=== PATIENT | female | born 2000 | race African-American/Black ===

== ENCOUNTER 2022-07-04 15:12 | Emergency (ER) | payer OTHER, SELFPAY ==
[2022-07-04 15:24] VITALS: BP 138/89; PULSE 98; RESP 20; TEMP 35.8; O2SAT 100
--- NOTE | 2022-07-04 16:27 | ED.GENADULT ---
HPI - General Adult General Chief complaint: Upper Respiratory Infection Stated complaint: upper respiratory Source: patient Mode of arrival: ambulatory Limitations: no limitations History of Present Illness HPI narrative: Patient presents for evaluation of sick symptoms for the last 2 to 3 days. Symptoms include sore throat, cough, chills and nausea. She denies any fever, chest pain, shortness of breath, otalgia, vomiting or diarrhea, her sister has similar symptoms. She is not taking any medication to assist with her symptoms. No additional complaints or concerns. Related Data Allergies Allergy/AdvReac Type Severity Reaction Status Date / Time No Known Allergies Allergy Verified 07/04/22 15:37 Review of Systems Review of Systems: CONSTITUTIONAL: Reports chills. Denies fever or sweats. EYES: Denies visual changes, redness, or discharge. ENT: Reports sore throat. Denies rhinorrhea, congestion, or otalgia. CARDIOVASCULAR: Denies chest pain, palpitations, or edema. RESPIRATORY: Reports cough. Denies shortness of breath. GASTROINTESTINAL: Reports nausea. Denies abdominal pain, vomiting, or diarrhea. GENITOURINARY: Denies dysuria or hematuria. SKIN: Denies rash or itching. MUSCULOSKELETAL: Denies back pain, joint pain, or myalgia. NEUROLOGIC: Denies headache, numbness, dizziness, or weakness. PSYCHIATRIC: Denies anxiety or depression. [facility] Past Medical History Medical History No pertinent past medical history Surgical History Surgical History (Updated 07/04/22 @ 16:29 by Kaiden Fu, [employer] MECHANIC, ) No pertinent past surgical history Family History Family History Mother Heart disease Social History Social History Living arrangements: with family Additional occupation/education comments: Works at [employer] Gender identity (if verbalized by the patient): Female Spiritual care concerns: No Exam Narrative: GENERAL: Well-appearing, well-nourished, and in no acute distress. HEAD: Normocephalic, atraumatic. EYES: PERRLA and EOMI. ENT: Nares clear, no rhinorrhea or epistaxis. Mucous membranes moist. Oropharynx without tonsillar hypertrophy exudate or other lesions. Bilateral TMs pearly us nonbulging NECK: Supple. No adenopathy or masses. No carotid bruits or JVD CHEST: Clear to auscultation. No respiratory distress. No wheezes rales or rhonchi HEART: Regular rate and rhythm. No murmur heard. Normal peripheral pulses. ABDOMEN: Soft, nontender, nondistended, normal active bowel sounds. EXTREMITIES: Normal range of motion. No edema. SKIN: Warm, dry, no rash. NEURO: No focal deficits. Alert and oriented x3. PSYCH: Normal mood and affect. Course Course Emergency Course: This is a 21-year-old female who presented for evaluation of sick symptoms. COVID and strep are negative. Influenza a positive. Will discharge with Tamiflu and Zofran. Increase hydration. Seen from work this week. Follow-up outpatient for further evaluation and treatment and go to the ER for worsening symptoms. Patient in agreement with plan of care. Level of Care: Express Care Visit Vital Signs Vital signs: Vital Signs Temperature 35.8 C L 07/04/22 15:24 Pulse Rate 98 07/04/22 15:24 Respiratory Rate 20 07/04/22 15:24 Blood Pressure 138/89 07/04/22 15:24 Pulse Oximetry 100 07/04/22 15:24 Oxygen Delivery Room Air 07/04/22 15:24 Temperature 35.8 C L 07/04/22 15:24 Pulse Rate 98 07/04/22 15:24 Respiratory Rate 20 07/04/22 15:24 Blood Pressure 138/89 07/04/22 15:24 Pulse Oximetry 100 07/04/22 15:24 Oxygen Delivery Room Air 07/04/22 15:24 Medical Decision Making Vital Signs Vital Signs: Vital Signs Temperature 35.8 C L 07/04/22 15:24 Pulse Rate 98 07/04/22 15:24 Respiratory Rate 20
== END 2022-07-04 16:28 | disposition home or self-care (01) ==
PROVIDERS: Emergency Provider Nurse Practitioner
DX: J10.1 Influenza due to other identified influenza virus with other respiratory manifestations (principal); Z20.822 Contact with and (suspected) exposure to COVID-19
CPT/HCPCS: 87081; 87426; 87804; 87880; 99213; C9803; G0463

== ENCOUNTER 2022-12-28 16:55 | Emergency (ER) | payer OTHER, SELFPAY ==
[2022-12-28 17:03] VITALS: BP 156/87; PULSE 118; RESP 16; TEMP 37; O2SAT 100
--- NOTE | 2022-12-28 17:32 | ED.SKABFB ---
HPI - Skin/Abscess/Foreign Bdy General Chief complaint: Skin/Abscess/Foreign Body Stated complaint: Skin Sore Time Seen by Provider: 12/28/22 17:22 Source: patient and RN notes reviewed Mode of arrival: ambulatory Limitations: no limitations History of Present Illness HPI narrative: Patient presents today complaining of drainage, itching, and tenderness to her umbilicus for the last couple of days. States similar symptoms a few weeks ago and states she used some triple antibiotic ointment which did provide some relief. She currently rates her pain 2/10 and reports she has not used any [id number] treatment over the last couple of days. Related Data Allergies Allergy/AdvReac Type Severity Reaction Status Date / Time No Known Allergies Allergy Verified 12/28/22 17:03 Review of Systems Review of Systems: CONSTITUTIONAL: Denies body aches, fever, chills, or sweats. EYES: Denies visual changes, redness, or discharge. ENT: Denies rhinorrhea, congestion, sore throat, or otalgia. CARDIOVASCULAR: Denies chest pain, palpitations, or edema. RESPIRATORY: Denies cough or dyspnea. GASTROINTESTINAL: Denies abdominal pain, nausea, vomiting, or diarrhea. GENITOURINARY: Denies dysuria or hematuria. SKIN: + itching, pain, and drainage to the umbilicus MUSCULOSKELETAL: Denies back pain, joint pain, or myalgia. NEUROLOGIC: Denies headache, numbness, tingling, or weakness. PSYCH: Denies depression or anxiety. [facility] Past Medical History Medical History No pertinent past medical history Surgical History Surgical History No pertinent past surgical history Family History Family History Mother Heart disease Social History Social History Living arrangements: with family Additional occupation/education comments: Works at [employer] Gender identity (if verbalized by the patient): Female Spiritual care concerns: No Comments At time of signature, I have reviewed and agree with nursing past medical, surgical, social and family history unless otherwise noted. Please see nursing chart for further information. There is no relevant family history pertinent to the presenting complaint Exam Narrative: GENERAL: Well-appearing, well-nourished, and in no acute distress. HEAD: Normocephalic, atraumatic. EYES: EOMI. No redness or drainage. Conjunctivae normal. ENT: Mucous membranes pink and moist. NECK: Normal AROM. CHEST: No respiratory distress. EXTREMITIES: Normal range of motion. No edema. SKIN: Warm, dry, no rash. Capillary refill normal. Normal skin turgor. Inside the umbilicus is very moist with moderate amount of thin, yellow drainage. Skin is slightly erythematous. NEURO: No focal deficits. Alert and oriented x3. Gait steady. PSYCH: Normal affect. No signs of depression or anxiety. Course Course Level of Care: Express Care Visit Vital Signs Vital signs: Vital Signs Temperature 98.6 F 12/28/22 17:03 Pulse Rate 118 H 12/28/22 17:03 Respiratory Rate 16 12/28/22 17:03 Blood Pressure 156/87 H 12/28/22 17:03 Pulse Oximetry 100 12/28/22 17:03 Oxygen Delivery Room Air 12/28/22 17:03 Temperature 98.6 F 12/28/22 17:03 Pulse Rate 118 H 12/28/22 17:03 Respiratory Rate 16 12/28/22 17:03 Blood Pressure 156/87 H 12/28/22 17:03 Pulse Oximetry 100 12/28/22 17:03 Oxygen Delivery Room Air 12/28/22 17:03 Reviewed. Pt has been instructed to follow up with her PCP regarding her elevated blood pressure today. MDM - Skin/Abscess/Foreign Bdy MDM Narrative Medical decision making narrative: Symptoms consistent with intertrigo in the umbilicus. Instructed to use clotrimazole. Would like a prescription. Anticipatory guidance given. Differential Diag
== END 2022-12-28 17:41 | disposition home or self-care (01) ==
PROVIDERS: Emergency Provider Nurse Practitioner
DX: L30.4 Erythema intertrigo (principal)
CPT/HCPCS: 99213; G0463

== ENCOUNTER 2025-02-25 10:20 | Emergency (ER) | payer OTHER, SELFPAY ==
[2025-02-25 10:30] VITALS: BP 139/78; PULSE 92; RESP 18; TEMP 36.1; O2SAT 100
[2025-02-25 10:49] LABS: EDCOVIDSCREEN Negative (Negative)
[2025-02-25 11:04] LABS: EDSTREPNEGPOS1 Negative (Negative)
--- NOTE | 2025-02-25 11:06 | ED.URI ---
HPI - URI/Sore Throat General Chief Complaint: Upper Respiratory Infection Stated Complaint: Sore Throat/Congestion/No Taste or Smell Time Seen by Provider: 02/25/25 10:43 Source: patient and RN notes reviewed Mode of arrival: ambulatory Limitations: no limitations History of Present Illness HPI Narrative: Patient presents today complaining of a 4 day history of nasal congestion, rhinorrhea, sore throat, postnasal drip, cough, eye watering. States last night she lost her taste and smell. Denies fever, shortness of breath. States symptoms have improved today. She has tried some Benadryl without relief. No history of asthma. Related Data Allergies Allergy/AdvReac Type Severity Reaction Status Date / Time No Known Allergies Allergy Verified 12/28/22 17:03 Review of Systems Review of Systems: CONSTITUTIONAL: Denies body aches, fever, chills, or sweats. EYES: Denies visual changes, redness. + bilateral eye watering ENT: + rhinorrhea, congestion, sore throat, postnasal drip CARDIOVASCULAR: Denies chest pain, palpitations, or edema. RESPIRATORY: Denies dyspnea.+ cough GASTROINTESTINAL: Denies abdominal pain, nausea, vomiting, or diarrhea. GENITOURINARY: Denies dysuria or hematuria. SKIN: Denies rash, itching, or wounds. MUSCULOSKELETAL: Denies back pain, joint pain, or myalgia. NEUROLOGIC: Denies headache, numbness, tingling, or weakness. PSYCH: Denies depression or anxiety. [facility] Past Medical History Medical History No pertinent past medical history Surgical History Surgical History No pertinent past surgical history Family History Family History Mother Heart disease Social History Social History Living arrangements: with family Additional occupation/education comments: Works at [employer] Gender identity (if verbalized by the patient): Female Spiritual care concerns: No Comments At time of signature, I have reviewed and agree with nursing past medical, surgical, social and family history unless otherwise noted. Please see nursing chart for further information. There is no relevant family history pertinent to the presenting complaint Exam Narrative: GENERAL: Well-appearing, well-nourished, and in no acute distress. HEAD: Normocephalic, atraumatic. EYES: EOMI. No redness or drainage. Conjunctivae normal. ENT: Mucous membranes pink and moist. Nares clear. No rhinorrhea. TMs normal bilaterally. Throat mildly erythematous. Tonsils 2 to 3+ without exudate. Uvula midline. NECK: Normal AROM. Supple. No lymphadenopathy. CHEST: No respiratory distress. Clear to auscultation. HEART: Regular rate and rhythm. No murmur appreciated. EXTREMITIES: Normal range of motion. No edema. SKIN: Warm, dry, no rash. Capillary refill normal. Normal skin turgor. NEURO: No focal deficits. Alert and oriented x3. Gait steady. PSYCH: Normal affect. No signs of depression or anxiety. Course Course Level of Care: Express Care Visit Vital Signs Vital signs: Vital Signs Temperature 97 F L 02/25/25 10:30 Pulse Rate 92 02/25/25 10:30 Respiratory Rate 02/25/25 10:30 Blood Pressure 139/78 02/25/25 10:30 Pulse Oximetry 100 02/25/25 10:30 Oxygen Delivery Room Air 02/25/25 10:30 Temperature 97 F L 02/25/25 10:30 Pulse Rate 92 02/25/25 10:30 Respiratory Rate 02/25/25 10:30 Blood Pressure 139/78 02/25/25 10:30 Pulse Oximetry 100 02/25/25 10:30 Oxygen Delivery Room Air 02/25/25 10:30 Reviewed MDM - URI/Sore Throat MDM Narrative Medical decision making narrative: COVID and rapid strep negative. Strep culture pending. Symptoms likely viral in etiology. Discussed using anti-inflammatories for her sore throat as well as daily antihistamine such as Zyrtec for her postnasal drip, rhinorrhea, and watery eyes. Patient is requesting prescriptions for these. Anticipatory guidance given. Differential Diagnosis Differential diagnosis: Likely upper respiratory infection, viral infection, pharyngitis and other (Strep throat) Lab Data Attestation: I reviewed the patient's lab results. Lab results narrative: Patient requested COVID test Labs: Lab Results 02/25/25 02/25/25 Range/Units 10:47 11:02 POC SARS CoV-2 Ag Negative (Negative) POC Grp A Strep Screen Negative (Negative) Critical Care Time Critical Care Time Critical Care Time: No Discharge Plan Discharge Clinical Impression: Upper respiratory infection Qualifiers: URI type: unspecified URI Qualified Code(s): J06.9 - Acute upper respiratory infection, unspecified Patient Disposition: Home Condition: Stable Instructions: Upper Respiratory Infection (DC) Additional Instructions: Your COVID-19 and rapid strep swab was negative today at [facility]. You will be notified in a few days if the culture comes back positive for strep, and appropriate antibiotics will be called in for you at that time. Your symptoms are likely due to a viral illness, which is not treated with antibiotics. Viral symptoms can be present for up to 7-10 days. Take ibuprofen and Zyrtec for symptoms. Rest and stay hydrated. Follow up with your PCP in 7 days if symptoms are not improving. Go to the ER immediately if you have any difficulty breathing or swallowing. Your blood pressure was elevated above 120/80 today at Urgent Care. This puts you above the threshold for follow up. Please schedule a followup visit with your personal physician as soon as possible, for further evaluation and treatment. Even blood pressure exceeding 120/80 may indicate pre-hypertension. Patient Language: Bengali Prescriptions: New ibuprofen 600 mg tablet 600 mg PO TID PRN (Reason: fever or pain) Qty: 20 0RF cetirizine 10 mg tablet 10 mg PO DAILY Qty: 20 0RF Follow-up/Referrals: UNKNOWN,DOCTOR [Primary Care Provider] - Time of Disposition: 11:13
--- OUTSIDE RECORDS SUMMARY | 2025-02-25 11:47 | XMS_ITS | Referral Summary ---
Author Organization [facility] Address [address] [place] [address] Care Team Providers Care Straightedge Man Name Role Phone No, Physician Primary Care Provider Allergies No known active allergies Medications chlorhexidine (PERIDEX) 0.12 % solutionIndicati ons:Gingivitis Apply 15 mL to the mouth or throat 2 (two) times a day 120 mL 03/04/2023 Active HYDROcodone-acet aminophen (NORCO) 5-325 mg per tabletIndication s:Pain Take 1 tablet by mouth every 6 (six) hours as needed for pain 10 tablet 03/04/2023 Active Social History Tobacco Use Types Packs/Day Years Used Date Smoking Tobacco: Never Assessed Personal Safety Answer Date Recorded Have you ever been in or are you currently in a harmful physical or emotional relationship or is someone making you feel afraid or unsafe? 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 Gender Identity Not on file Sexual Orientation Not on file Last Filed Vital Signs Vital Sign Reading Time Taken Comments Blood Pressure 153/77 03/03/2023 10:38 PM CDT Pulse 66 03/03/2023 10:38 PM CDT Temperature 36.6 C (97.8 F) 03/03/2023 10:38 PM CDT Respiratory Rate 17 03/03/2023 10:38 PM CDT Oxygen Saturation 100% 03/03/2023 10:38 PM CDT Inhaled Oxygen Concentration - - Weight 125.2 kg (276 lb) 03/03/2023 10:38 PM CDT Height 167.6 cm (5' 6) 03/03/2023 10:38 PM CDT Body Mass Index 44.55 03/03/2023 10:38 PM CDT Plan of Treatment Not on file Insurance [facility] Care Teams Straightedge Man Relationship Specialty Start Date End Date No, Physician PCP - General 10/20/22
--- OUTSIDE RECORDS SUMMARY | 2025-02-25 11:47 | XMS_ITS | Clinical Summary ---
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 Gender Identity Not on file Sexual Orientation Not on file Obstetrics History Last Filed Vital Signs Vital Sign Reading [...] 03/03/2023 10:38 PM CDT Plan of Treatment Health Maintenance Due Date Last Done Comments Cervical Cancer Screening 2001 Depression Screening 2001 Hepatitis C Screening 2001 Meningococcal B Vaccine (1 o f 2 - Standard) 2017 Regular Well Visit/Exam 18-64 11/22/2019 DTaP/Tdap/Td Vaccine (6 - Td or Tdap) 06/11/2023 06/11/2013, 08/20/2007, 02/06/2007, Additional history exists Influenza Vaccine (Season Ended) 2025 Pneumococcal vaccine <65 Completed 01/25/2006 Hepatitis B Screening Completed 02/06/2007 , 01/25/2006, 05/04/2004, Additional history exists Varicella Vaccines Completed 02/06/2007, 05/04/2004 HPV Vaccines Completed 06/16/2016, 06/11/2013 Insurance [facility] Care Teams Talent Acquisition Relationship Manager Relationship Specialty Start Date End Date No, Physician PCP - General 10/20/22
--- OUTSIDE RECORDS SUMMARY | 2025-02-25 11:48 | XMS_ITS | Data Portability ---
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 Lab CMP, serum or plasma 2023 024 [facility], [address], [place], [address], 4 06:20:00 HbA1c (hemog lobin A1c), blood 2023 024 ERNESTINA [facility], [address], [place], [address], 4 11:14:56 lipid panel, serum 2023 024 ERNESTINA [facility], [address], [place], [address], 4 06:19:59 vagina l pathog ens panel, ANDREE+pr obe, vagina l fluid 2023 024 ERNESTINA [facility], [address], [place], [address], 4 06:18:10 vitami n D, 25-hyd mariana, total, serum 2023 024 [facility], [address], [place], [address], 4 11:14:57 vagina l pathog ens panel, ANDREE+pr obe, vagina l fluid 2023 024 [facility], [address], [place], [address], 4 07:19:14 cytolo gy report , thin prep, smear or scrapi ng, cervic al or vagina l 2022 023 [facility], [address], [place], [address], 3 16:15:39 HIV 1 + 2, meanin gful use set 2022 023 [facility], [address], [place], [address], 3 11:15:42 RPR (rapid plasma reagin ), serum 2022 023 [facility], [address], [place], [address], 3 11:15:42 Hepati tis C IgG Ab, qual, serum 2022 023 [facility], [address], [place], [address], 3 11:15:38 HBsAg (hepat itis B surfac e Ag), EIA, serum 2022 023 [facility], [address], [place], [address], 3 11:15:41 hsv (1+2) igg, serum 2022 023 [facility], [address], [place], [address], 3 11:15:39 vagina l pathog ens panel, ANDREE+pr obe, vagina l fluid 2022 023 [facility], [address], [place], [address], 3 11:15:40 lipid panel, serum 2017 018 [facility], [address] [place] [address] [address], [place], [address], 8 07:14:11 HbA1c (hemog lobin A1c), blood 2017 018 [facility], [address] [place] [address] [address], [place], [address], 8 07:14:12 TSH + free T4, serum 2017 018 [facility], [address] [place] [address] [address], [place], [address], 8 07:14:10 vitami n D, 25-hyd mariana, total, serum 2017 018 [facility], [address] [place] [address] [address], [place], [address], 8 07:14:12 CBC 2017 018 [facility], [address] [place], [place] [address], [address], [place], [address], 8 07:14:10 CMP, serum or plasma 2017 018 [facility], [address], [address], [place], [address], 8 07:14:11 rapid strep group A, throat 2015 016 In-Office Order, Internal Use Only DO Not Attach Compendium DO Not Attach Compendium, Do Not Delete/merge, [id number] 15:47:15 HbA1c (hemog lobin A1c), blood 2015 016 [facility], [address], [address], [place], [address], 6 11:10:12 lipid panel, serum 2015 016 ERNESTINA [facility], [address], [place], [address], 6 11:10:11 vitami n D, 25-hyd mariana, total, serum 2015 016 [facility], [address], [address], [place], [address], 6 11:10:13 TSH, 2nd Genera tion, QN, serum or plasma 2015 016 [facility], [address], [place], [address], 6 11:10:12 T4, free, serum 2015 016 ER[facility]STINA [facility], [address], [address], [place], [address], 6 11:10:12 HIV 1+2 AB + HIV 1 p24 Ag, qualit ative immuno assay, serum 2015 016 ERNESTINA SALAZARANNABEL[facility], [address] [facility], [address], [place], [address], 6 11:10:13 CBC 2015 016 [facility], [address] [facility], [address], [place], [address], 6 11:10:10 CMP, serum or plasma 2015 016 [facility], [address] [facility] [address], [place], [address], 6 11:10:11 Referral yg lubin referr al 2023 024 [email or web address] Not available 4 19:00:06 breast surger y referr al - Martha barrera has been comple lyndsay at this time. 2023 024 [facility], [address] [facility], [facility], [place], [address], 4 14:14:45 breast surger y referr al 2022 023 [facility] tim [facility], [address] [facility], [address] , [place], [address], 3 10:25:30 nutrit ionist /dieti klarissa referr al 2017 018 [email or web address] [facility], [address] [facility] [place], [address], 9 16:04:57 Procedures None record ed. Surgeries None record ed. Imaging MAMMO, diagno stic, bilate ral - ultras ound if needed 2023 024 [email or web address] [facility] Scheduling, [address] [facility] [place], [address], 4 00:04:33 US, breast , unilat eral 2023 024 [email or web address] Malone [facility] Scheduling, [address] [facility] , [place], [address], 4 14:23:58 Medication Orders nicoti ne 14 mg/24 hr daily transd ermal patch 2023 024 ERNESTINA [id number], [address], [place], [place], [id number], 4 22:58:10 nicoti ne 7 mg/24 hr daily transd ermal patch 2023 024 [email or web address] [facility] #[id number], [address], [place], [place], [id number], 4 10:03:32 Xulane 150 mcg-35 mcg/24 hr transd ermal patch 2022 023 [email or web address] [facility] #[id number], [address], [place], [place], [id number], 4 10:47:55 Patient TargetsNo targets recorded. Patient Instructions Encounter Date Encounter Id Patient Instructions Last Modified By Organization Details Last Modified Time 06/16/2016 [id number] when your child IS overweight: care instructions Not available 06/16/2016 15:47:14 your child WHO IS overweight: care instructions Not available 06/16/2016 15:47:14 diet-exercise, rule 58782 Not available 06/16/2016 15:41:41 11/19/2017 [id number] diet and exercise advice, must have good breakfast and please follow rule 5210 again Not available 11/19/2017 17:37:31 06/04/2023 [id number] learning about mood disorders [email or web address] Not available 06/04/2023 14:48:31 Quitting Tobacco: Care Instructions [email or web address] Not available 06/04/2023 16:00:28 A healthy lifestyle: care instructions [email or web address] Not available 06/04/2023 16:00:28 breast pain: care instructions [email or web address] Not available 06/04/2023 14:48:31 02/13/2024 [id number] A healthy lifestyle: care instructions [email or web address] Not available 02/13/2024 13:21:31 04/29/2024 [id number] Quitting Tobacco: Care Instructions [email or web address] Not available 04/29/2024 16:14:13 A healthy lifestyle: care instructions [email or web address] Not available 04/29/2024 16:14:13 I saw the patient with the resident. I agree with the resident's assessment and plan as documented with the following additions: S: Concerned about right breast pain - stabbing and pulling pain. Had increased swelling in January, improved in February. Did not have breast imaging done yet. No nipple discharge, skin changes. Also has low abdominal pain, L>R, x4 months. Feels stabbing or pulling; worse with movement. No n/v, constipation, diarrhea. Has vaginal odor. No period problems. Has tension headaches. Also concern for anxiety. No SI/HI but did not want to discuss further. Vapes and wants to quit. Smokes MJ daily. O: Normal abdominal exam. Right breast larger than the left with area A/P: Diagnostic Mammo ordered and imaging referral provided to patient Nolberto Vizcarra MD [email or web address] Not available 05/13/2024 11:12:20 Reason for Referral Inclinometer Tester/dietitian Refer ral for Morbid obesity Referring Physician: Harpreet Mortensen, Pediatric Medicine, Encounter Date: 11/19/2017 Breast Surgery Referral for Pain of breast Referring Physician: Rose Arriaga, Supervisor Pleating, Encounter Date: 06/04/2023 Breast Surgery Referral for Mass of right breast newer onset right breast siginifcantly larger than left breast and pos mass in right breast and pain No imaging has been completed at this time. Referring Physician: Emilie See, MANAGER UTILIZATION MANAGEMENT, Encounter Date: 02/13/2024 Counseling Referral for Posi tive screening for depression on PHQ-9 (Patient Health Questionnaire 9) Referring Physician: Emilie See, MANAGER UTILIZATION MANAGEMENT, Encounter Date: 02/13/2024 Results Created Date Observation Date Name Description Value Unit Range Abnormal Flag Note LastModifiedBy Organization Detail LastModifiedTime 06/16/20 16 06/16/2016 rapid strep group A, throa t Strep negati ve Not Available In-Office Order Internal Use Only DO Not Attach Compendium DO Not Attach Compendium, Do Not Delete/merge, [id number] 06/16/2016 15:46:45 06/16/20 16 06/17/2016 CBC WBC 8.3 x10e3 /uL 3.4-10 .8 Not Available [facility] ([facility]) [address] [place], [address], 06/17/2016 11:10:10 06/16/20 16 06/17/2016 CBC RBC 5.85 x10e6 /uL 3.77-5 .28 above high normal Not Available [facility] ([facility]) [address] [place], [address], 06/17/2016 11:10:10 06/16/20 16 06/17/2016 CBC hemoglobin 13.4 g/dL 11.1-1 5.9 Not Available [facility] ([facility]) [address] [place], [address], 06/17/2016 11:10:10 06/16/20 16 06/17/2016 CBC hematocrit 39.5 % 34.0-4 6.6 Not Available [facility] ([facility]) [address] [place], [address], 06/17/2016 11:10:10 06/16/20 16 06/17/2016 CBC MCV 68 fL 79-97 below low normal Not Available [facility] ([facility]) [address] [place], [address], 06/17/2016 11:10:10 06/16/20 16 06/17/2016 CBC MCH 22.9 pg 26.6-3 3.0 below low normal Not Available [facility] ([facility]) [address] [facility] [place], [address], 06/17/2016 11:10:10 06/16/20 16 06/17/2016 CBC MCHC 33.9 g/dL 31.5-3 5.7 Not Available [facility] ([facility]) [address] [facility] [place], [address], 06/17/2016 11:10:10 06/16/20 16 06/17/2016 CBC RDW 16.4 % 12.3-1 5.4 above high normal Not Available [facility] ([facility]) [address] [facility] [place], [address], 06/17/2016 11:10:10 06/16/20 16 06/17/2016 CBC platelets 361 x10e3 /uL 150-37 9 Not Available [facility] ([facility]) [address] [place], [address], 06/17/2016 11:10:10 06/16/20 16 06/17/2016 CBC neutrophils 45 % Not Avai lable [facility] ([facility]) [address] [place], [address], 06/17/2016 11:10:10 06/16/20 16 06/17/2016 CBC lymphs 46 % Not Available [facility] ([facility]) [address] [place], [address], 06/17/2016 11:10:10 06/16/20 16 06/17/2016 CBC monocytes 8 % Not Availa ble [facility] ([facility]) [address] [place], [address], 06/17/2016 11:10:10 06/16/20 16 06/17/2016 CBC eos 1 % Not Available [facility] ([facility]) [address] [place], [address], 06/17/2016 11:10:10 06/16/20 16 06/17/2016 CBC basos 0 % Not Available [facility] ([facility]) [address] [place], [address], 06/17/2016 11:10:10 06/16/20 16 06/17/2016 CBC immature cells PUBLIC HEALTH REPRESENTATIVE Not Available [facility] ([facility]) [address] [place], [address], 06/17/2016 11:10:10 06/16/20 16 06/17/2016 CBC neutrophils (absolute) 3.7 x10e3 /uL 1.4-7. 0 Not Available [facility] ([facility]) [address] [place], [address], 06/17/2016 11:10:10 06/16/20 16 06/17/2016 CBC lymphs (absolute) 3.8 x10e3 /uL 0.7-3. 1 above high normal Not Available [facility] ([facility]) [address] [facility], [place], [address], 06/17/2016 11:10:10 06/16/20 16 06/17/2016 CBC monocytes(ab solute) 0.7 x10e3 /uL 0.1-0. 9 Not Available [facility] ([facility]) [address] [place], [address], 06/17/2016 11:10:10 06/16/20 16 06/17/2016 CBC eos (absolute) 0.0 x10e3 /uL 0.0-0. 4 Not Available [facility] ([facility]) [address] [place], [address], 06/17/2016 11:10:10 06/16/20 16 06/17/2016 CBC baso (absolute) 0.0 x10e3 /uL 0.0-0. 3 Not Available [facility] ([facility]) [address] [place], [address], 06/17/2016 11:10:10 06/16/20 16 06/17/2016 CBC immature granulocytes 0 % Not Available [facility] ([facility]) [address] [place], [address], 06/17/2016 11:10:10 06/16/20 16 06/17/2016 CBC immature grans (abs) 0.0 x10e3 /uL 0.0-0. 1 Not Available [facility] ([facility]) [address] [place], [address], 06/17/2016 11:10:10 06/16/20 16 06/17/2016 CBC NRBC PUBLIC HEALTH REPRESENTATIVE Not Available [facility] ([facility]) [address] [place], [address], 06/17/2016 11:10:10 06/16/20 16 06/17/2016 CBC hematology comments: PUBLIC HEALTH REPRESENTATIVE Not Available [facility] ([facility]) [address] [facility], [place], [address], 06/17/2016 11:10:10 06/16/20 16 06/17/2016 CMP, serum or plasm a glucose, serum 84 mg/dL 65-99 Not Available [facility] ([facility]) [address] [place], [address], 06/17/2016 11:10:11 06/16/20 16 06/17/2016 CMP, serum or plasm a BUN 10 mg/dL 5-18 Not Available [facility] ([facility]) [address] [place], [address], 06/17/2016 11:10:11 06/16/20 16 06/17/2016 CMP, serum or plasm a creatinine, serum 0.70 mg/dL 0.49-0 .90 Not Available [facility] ([facility]) [address] [place], [address], 06/17/2016 11:10:11 06/16/20 16 06/17/2016 CMP, serum or plasm a BUN/creatini ne ratio 14 9-25 Not Available [facility] ([facility]) [address] [place], [address], 06/17/2016 11:10:11 06/16/20 16 06/17/2016 CMP, serum or plasm a sodium, serum 143 mmol/ L 134-14 4 EFF ECTIV E OCTOB ER 2015 THE REFER ENCE INTER SAVANA FOR SODIU M, SERUM WILL BE BURNETT ING TO: 136 - 144 Not Available [facility] ([facility]) [address] [place], [address], 06/17/2016 11:10:11 06/16/20 16 06/17/2016 CMP, serum or plasm a potassium, serum 4.7 mmol/ L 3.5-5. 2 EFF ECTIV E OCTOB ER 2015 THE REFER ENCE INTER SAVANA FOR POTAS SIUM, SERUM WILL BE BURNETT ING TO: 0 - 7 DAYS 3.7 - 5.2 8 - 30 DAYS 3.7 - 6.4 1 - 6 MONTH S 3.8 - 6.0 7 MONTH S - 1 YEAR 3.8 - 5.3 >1 YEAR 3.5 - 5.2 Not Available [facility] ([facility]) [address] [place], [address], 06/17/2016 11:10:11 06/16/20 16 06/17/2016 CMP, serum or plasm a chloride, serum 101 mmol/ L 97-108 EFF ECTIV E OCTOB ER 2015 THE REFER ENCE INTER SAVANA FOR CHLOR AYANNA, SERUM WILL BE BURNETT ING TO: 97 - 106 Not Available [facility] ([facility]) [address] [place], [address], 06/17/2016 11:10:11 06/16/20 16 06/17/2016 CMP, serum or plasm a calcium, serum 9.7 mg/dL 8.9-10 .4 Not Available [facility] ([facility]) [address] [facility], [place], [address], 06/17/2016 11:10:11 06/16/20 16 06/17/2016 CMP, serum or plasm a protein, total, serum 7.5 g/dL 6.0-8. 5 Not Available [facility] ([facility]) [address] [facility], [place], [address], 06/17/2016 11:10:11 06/16/20 16 06/17/2016 CMP, serum or plasm a albumin, serum 4.3 g/dL 3.5-5. 5 Not Available [facility] ([facility]) [address] [facility], [place], [address], 06/17/2016 11:10:11 06/16/20 16 06/17/2016 CMP, serum or plasm a globulin, total 3.2 g/dL 1.5-4. 5 Not Available [facility] ([facility]) [address] [facility], [place], [address], 06/17/2016 11:10:11 06/16/20 16 06/17/2016 CMP, serum or plasm a A/G ratio 1.3 1.1-2. 5 Not Available [facility] ([facility]) [address] [facility], [place], [address], 06/17/2016 11:10:11 06/16/20 16 06/17/2016 CMP, serum or plasm a bilirubin, total 0.4 mg/dL 0.0-1. 2 Not Available [facility] ([facility]) [address] [facility], [place], [address], 06/17/2016 11:10:11 06/16/20 16 06/17/2016 CMP, serum or plasm a alkaline phosphatase, S 133 IU/L 62-149 Not Available [facility] ([facility]) [address] [facility], [place], [address], 06/17/2016 11:10:11 06/16/20 16 06/17/2016 CMP, serum or plasm a AST (SGOT) 14 IU/L 0-40 Not Available [facility] ([facility]) [address] [place], [address], 06/17/2016 11:10:11 06/16/20 16 06/17/2016 lipid panel , serum cholesterol, total 187 mg/dL 100-16 9 above high normal Not Available [facility] ([facility]) [address] [place], [address], 06/17/2016 11:10:11 06/16/20 16 06/17/2016 lipid panel , serum triglyceride s 79 mg/dL 0-89 Not Available [facility] ([facility]) [address] [place], [address], 06/17/2016 11:10:11 06/16/20 16 06/17/2016 lipid panel , serum HDL cholesterol 39 mg/dL >39 below low normal ACCOR DING TO ATP-I II GUIDE LINES , HDL-C >59 MG/DL IS CONSI DERED A NEGAT BRANDY RISK FACTO R FOR CHD. Not Available [facility] ([facility]) [address] [place], [address], 06/17/2016 11:10:11 06/16/20 16 06/17/2016 lipid panel , serum VLDL cholesterol ulices 16 mg/dL 5-40 Not Available [facility] ([facility]) [address] [place], [address], 06/17/2016 11:10:11 06/16/20 16 06/17/2016 lipid panel , serum LDL cholesterol calc 132 mg/dL 0-109 above high normal Not Available [facility] ([facility]) [address] [place], [address], 06/17/2016 11:10:11 06/16/20 16 06/17/2016 lipid panel , serum comment: PUBLIC HEALTH REPRESENTATIVE Not Available [facility] ([facility]) [address] [facility], [place], [address], 06/17/2016 11:10:11 06/16/20 16 06/17/2016 HbA1c (hemo globi n A1c), blood hemoglobin A1C 5.4 % 4.8-5. 6 PRE-D IABET ES: 5.7 - 6.4 DIABE ABEL: >6.4 GLYCE AZAM CONTR OL FOR ADULT S WITH DIABE ABEL: <7.0 Not Available [facility] ([facility]) [address] [place], [address], 06/17/2016 11:10:11 06/16/20 16 06/17/2016 T4, free, serum T4,free(dire ct) 1.28 NG/dL 0.93-1 .60 Not Available [facility] ([facility]) [address] [place], [address], 06/17/2016 11:10:12 06/16/20 16 06/17/2016 TSH, 2nd Gener ation , QN, serum or plasm a TSH 2.110 uIU/m L 0.450- 4.500 Not Available [facility] ([facility]) [address] [place], [address], 06/17/2016 11:10:12 06/16/20 16 06/17/2016 vitam in D, 25-hy droxy , total , serum vitamin D, 25-hydroxy 12.0 NG/mL 30.0-1 00.0 below low normal VITAM IN D DEFIC IENCY HAS BEEN DEFIN ED BY THE INSTI TUTE OF MEDIC INE AND AN ENDOC RINE SOCIE TY PRACT ICE GUIDE LINE A LEVEL OF SERUM 25-OH VITAM IN D LESS THAN 20 NG/ML (1,2) . THE ENDOC RINE SOCIE TY WENT ON TO FURTH ER DEFIN E VITAM IN D INSUF FICIE NCY A LEVEL BETWE EN 21 AND 29 NG/ML (2). 1. IOM (INST ITUTE OF MEDIC INE). 2010. DIETA RY REFER ENCE INTAK ES FOR CALCI UM AND D. MEGAN SONG DC: THE [facility] PRESS . 2. ANASTASIA Cm MF, BINKL EY NC, BISCH OFF-F ERRAR I SEALS, ET AL. EVALU ATION , TREAT MENT, AND PREVE NTION OF VITAM IN D DEFIC IENCY : AN ENDOC RINE SOCIE TY CLINI ULICES PRACT ICE GUIDE LINE. JCEM. 2010; 96(7) :1911 -30. Not Available [facility] ([facility]) [address] [place], [address], 06/17/2016 11:10:13 06/16/20 16 06/17/2016 HIV 1+2 AB + HIV 1 p24 Ag, quali tativ e immun oassa y, serum HIV screen 4TH generation wrfx NON REACTI VE non reacti ve Not Available [facility] ([facility]) [address] [place], [address], 06/17/2016 11:10:13 11/20/19 18 11/20/2017 TSH + free T4, serum TSH 2.230 uIU/m L 0.450- 4.500 Not Available [facility] ([facility]) [address] [place], [address], 11/20/2017 07:14:09 11/20/19 18 11/20/2017 TSH + free T4, serum T4,free(dire ct) 1.18 NG/dL 0.93-1 .60 Not Available [facility] ([facility]) [address] [place], [address], 11/20/2017 07:14:09 11/20/19 18 11/20/2017 CBC WBC 8.6 x10e3 /uL 3.4-10 .8 Not Available [facility] ([facility]) [address] [place], [address], 11/20/2017 07:14:10 11/20/19 18 11/20/2017 CBC RBC 5.81 x10e6 /uL 3.77-5 .28 above high normal Not Available [facility] ([facility]) [address] [place], [address], 11/20/2017 07:14:10 11/20/19 18 11/20/2017 CBC hemoglobin 13.3 g/dL 11.1-1 5.9 Not Available [facility] ([facility]) [address] [place], [address], 11/20/2017 07:14:10 11/20/19 18 11/20/2017 CBC hematocrit 38.8 % 34.0-4 6.6 Not Available [facility] ([facility]) [address] [place], [address], 11/20/2017 07:14:10 11/20/19 18 11/20/2017 CBC MCV 67 fL 79-97 below low normal Not Available [facility] ([facility]) [address] [place], [address], 11/20/2017 07:14:10 11/20/19 18 11/20/2017 CBC MCH 22.9 pg 26.6-3 3.0 below low normal Not Available [facility] ([facility]) [address] [place], [address], 11/20/2017 07:14:10 11/20/19 18 11/20/2017 CBC MCHC 34.3 g/dL 31.5-3 5.7 Not Available [facility] ([facility]) [address] [place], [address], 11/20/2017 07:14:10 11/20/19 18 11/20/2017 CBC RDW 17.7 % 12.3-1 5.4 above high normal Not Available [facility] ([facility]) [address] [place], [address], 11/20/2017 07:14:10 11/20/19 18 11/20/2017 CBC platelets 373 x10e3 /uL 150-37 9 Not Available [facility] ([facility]) [address] [facility], [place], [address], 11/20/2017 07:14:10 11/20/19 18 11/20/2017 CBC neutrophils 45 % not estab. Not Available [facility] ([facility]) [address] [facility], [place], [address], 11/20/2017 07:14:10 11/20/19 18 11/20/2017 CBC lymphs 49 % not estab. Not Available [facility] ([facility]) [address] [facility], [place], [address], 11/20/2017 07:14:10 11/20/19 18 11/20/2017 CBC monocytes 5 % not estab. Not Available [facility] ([facility]) [address] [facility], [place], [address], 11/20/2017 07:14:10 11/20/19 18 11/20/2017 CBC eos 1 % not estab. Not Available [facility] ([facility]) [address] [facility], [place], [address], 11/20/2017 07:14:10 11/20/19 18 11/20/2017 CBC basos 0 % not estab. Not Available [facility] ([facility]) [address] [facility], [place], [address], 11/20/2017 07:14:10 11/20/19 18 11/20/2017 CBC immature cells PUBLIC HEALTH REPRESENTATIVE Not Available [facility] ([facility]) [address] [facility], [place], [address], 11/20/2017 07:14:10 11/20/19 18 11/20/2017 CBC neutrophils (absolute) 3.9 x10e3 /uL 1.4-7. 0 Not Available [facility] ([facility]) [address] [facility], [place], [address], 11/20/2017 07:14:10 11/20/19 18 11/20/2017 CBC lymphs (absolute) 4.3 x10e3 /uL 0.7-3. 1 above high normal Not Available [facility] ([facility]) [address] [place], [address], 11/20/2017 07:14:10 11/20/19 18 11/20/2017 CBC monocytes(ab solute) 0.4 x10e3 /uL 0.1-0. 9 Not Available [facility] ([facility]) [address] [place], [address], 11/20/2017 07:14:10 11/20/19 18 11/20/2017 CBC eos (absolute) 0.1 x10e3 /uL 0.0-0. 4 Not Available [facility] ([facility]) [address], [place], [address], 11/20/2017 07:14:10 11/20/19 18 11/20/2017 CBC baso (absolute) 0.0 x10e3 /uL 0.0-0. 3 Not Available [facility] ([facility]) [address] [place], [address], 11/20/2017 07:14:10 11/20/19 18 11/20/2017 CBC immature granulocytes 0 % not estab. Not Available [facility] ([facility]) [address] [place], [address], 11/20/2017 07:14:10 11/20/1911/20/2017 CBC immature grans (abs) 0.0 x10e3 /uL 0.0-0. 1 Not Available [facility] ([facility]) [address] [place], [address], 11/20/2017 07:14:10 11/20/19 18 11/20/2017 CBC NRBC PUBLIC HEALTH REPRESENTATIVE Not Available [facility] ([facility]) [address] [place], [address], 11/20/2017 07:14:10 11/20/19 18 11/20/2017 CBC hematology comments: PUBLIC HEALTH REPRESENTATIVE Not Available [facility] ([facility]) [address] [place], [address], 11/20/2017 07:14:10 11/20/19 18 11/20/2017 CMP, serum or plasm a glucose, serum 103 mg/dL 65-99 above high normal Not Available [facility] ([facility]) [address] [place], [address], 11/20/2017 07:14:11 11/20/19 18 11/20/2017 CMP, serum or plasm a BUN 9 mg/dL 5-18 Not Available [facility] ([facility]) [address] [place], [address], 11/20/2017 07:14:11 11/20/19 18 11/20/2017 CMP, serum or plasm a creatinine, serum 0.71 mg/dL 0.57-1 .00 Not Available [facility] ([facility]) [address] [place], [address], 11/20/2017 07:14:11 11/20/19 18 11/20/2017 CMP, serum or plasm a BUN/creatini ne ratio 13 10-22 Not Available [facility] ([facility]) [address] [place], [address], 11/20/2017 07:14:11 11/20/19 18 11/20/2017 CMP, serum or plasm a sodium, serum 140 mmol/ L 134-14 4 Not Available [facility] ([facility]) [address] [place], [address], 11/20/2017 07:14:11 11/20/19 18 11/20/2017 CMP, serum or plasm a potassium, serum 4.9 mmol/ L 3.5-5. 2 Not Available [facility] ([facility]) [address] [facility] [place], [address], 11/20/2017 07:14:11 11/20/19 18 11/20/2017 CMP, serum or plasm a chloride, serum 102 mmol/ L 96-106 Not Available [facility] ([facility]) [address] [facility] [place], [address], 11/20/2017 07:14:11 11/20/19 18 11/20/2017 CMP, serum or plasm a calcium, serum 9.5 mg/dL 8.9-10 .4 Not Available [facility] ([facility]) [address] [facility] [place], [address], 11/20/2017 07:14:11 11/20/19 18 11/20/2017 CMP, serum or plasm a protein, total, serum 7.3 g/dL 6.0-8. 5 Not Available [facility] ([facility]) [address] [facility] [place], [address], 11/20/2017 07:14:11 11/20/19 18 11/20/2017 CMP, serum or plasm a albumin, serum 3.9 g/dL 3.5-5. 5 Not Available [facility] ([facility]) [address] [facility] [place], [address], 11/20/2017 07:14:11 11/20/19 18 11/20/2017 CMP, serum or plasm a globulin, total 3.4 g/dL 1.5-4. 5 Not Available [facility] ([facility]) [address] [place], [address], 11/20/2017 07:14:11 11/20/19 18 11/20/2017 CMP, serum or plasm a A/G ratio 1.1 1.2-2. 2 below low normal Not Available [facility] ([facility]) [address] [facility] [place], [address], 11/20/2017 07:14:11 11/20/19 18 11/20/2017 CMP, serum or plasm a bilirubin, total 0.3 mg/dL 0.0-1. 2 Not Available [facility] ([facility]) [address] [place], [address], 11/20/2017 07:14:11 11/20/19 18 11/20/2017 CMP, serum or plasm a alkaline phosphatase, S 110 IU/L 54-121 Not Available [facility] ([facility]) [address] [place], [address], 11/20/2017 07:14:11 11/20/19 18 11/20/2017 CMP, serum or plasm a AST (SGOT) 16 IU/L 0-40 Not Available [facility] ([facility]) [address] [place], [address], 11/20/2017 07:14:11 11/20/19 18 11/20/2017 lipid panel , serum cholesterol, total 191 mg/dL 100-16 9 above high normal Not Available [facility] ([facility]) [address] [facility] [place], [address], 11/20/2017 07:14:11 11/20/19 18 11/20/2017 lipid panel , serum triglyceride s 110 mg/dL 0-89 above high normal Not Available [facility] ([facility]) [address] [facility] [place], [address], 11/20/2017 07:14:11 11/20/19 18 11/20/2017 lipid panel , serum HDL cholesterol 42 mg/dL >39 Not Available [facility] ([facility]) [address] [facility] [place], [address], 11/20/2017 07:14:11 11/20/19 18 11/20/2017 lipid panel , serum VLDL cholesterol ulices 22 mg/dL 5-40 Not Available [facility] ([facility]) [address] [facility] [place], [address], 11/20/2017 07:14:11 11/20/19 18 11/20/2017 lipid panel , serum LDL cholesterol calc 127 mg/dL 0-109 above high normal Not Available [facility] ([facility]) [address] [facility], [place], [address], 11/20/2017 07:14:11 11/20/19 18 11/20/2017 lipid panel , serum comment: PUBLIC HEALTH REPRESENTATIVE Not Available [facility] ([facility]) [address] [facility], [place], [address], 11/20/2017 07:14:11 11/20/19 18 11/20/2017 HbA1c (hemo globi n A1c), blood hemoglobin A1C 5.3 % 4.8-5. 6 Pre-d iabet es: 5.7 - 6.4 Diabe abel: >6.4 Glyce azam contr ol for adult s with diabe abel: <7.0 Not Available [facility] ([facility]) [address] [facility], [place], [address], 11/20/2017 07:14:12 11/20/19 18 11/20/2017 vitam in D, 25-hy droxy , total , serum vitamin D, 25-hydroxy 10.9 NG/mL 30.0-1 00.0 below low normal Vitam in D defic iency has been defin ed by the Insti tute of Medic ine and an Endoc rine Socie ty pract ice guide line as a level of serum 25-OH vitam in D less than 20 ng/mL (1,2) . The Endoc rine Socie ty went on to furth er defin e vitam in D insuf ficie ncy as a level betwe en 21 and 29 ng/mL (2). 1. IOM (Inst itute of Medic ine). 2010. Dieta ry refer ence intak es for calci um and D. Megan song [place]: The [facility] Press . 2. Anastasia cm MF, Harsha ey [place], Yaneth off-F errar i SEALS, et al. Evalu ation , treat ment, and preve ntion of vitam in D defic iency : an Endoc rine Socie ty clini ulices pract ice guide line. JCEM. 2010; 96(7) :1911 -30. Not Available [facility] ([facility]) [address] [facility], [place], [address], 11/20/2017 07:14:12 06/04/20 23 06/05/2023 HCV ANTIB JOSE hep C virus Ab Non Reacti ve nonrea ctive HCV antib jose alone does not diffe renti ate betwe en previ ously resol caro infec tion and activ e infec tion. Equiv ocal and React brandy HCV antib jose resul ts shoul d be follo wed up with an HCV RNA test to suppo rt the diagn osis of activ e HCV infec tion. Not Available [facility] ([facility]) [address] [facility], [place], [address], 06/06/2023 11:15:38 06/04/20 23 06/05/2023 HSV 1 AND 2 AB, IGG hsv 1 IgG, type spec <0.91 index 0.00-0 .90 Negat brandy <0.91 Equiv ocal 0.91 - 1.09 Posit brandy >1.09 Note: Negat brandy indic ates no antib odies detec lyndsay to HSV-1 . Equiv ocal may sugge st early infec tion. If clini afshan appro priat e, retes t at later date. Posit brandy indic ates antib odies detec lyndsay to HSV-1 . Not Available [facility] ([facility]) [address] [facility], [place], [address], 06/06/2023 11:15:39 06/04/20 23 06/05/2023 HSV 1 AND 2 AB, IGG hsv 2 IgG, type spec <0.91 Negat brandy <0.91 Equiv ocal 0.91 - 1.09 Posit brandy >1.09 HSV-2 Antib jose Inter preta tion: Negat brandy indic ates no detec table antib odies to HSV-2 were found . If recen t expos ure is suspe cted, retes t in 4-6 weeks . Equiv ocal sampl es shoul d be retes lyndsay in 4-6 weeks . Posit brandy indic ates the prese nce of detec table IgG antib jose to HSV-2 . False posit brandy resul ts may occur . Repea t testi ng, or testi ng by a diffe rent smiley traore, may be indic ated in some setti ngs (e.g. patie nts with low likel ihood of HSV infec tion) . If clini afshan appro priat e, retes t 4-6 weeks later . Not Available [facility] ([facility]) [address] [facility], [place], [address], 06/06/2023 11:15:39 06/04/20 23 06/05/2023 NUSWA B VAGIN ITIS PLUS (VG+) atopobium vaginae Low - 0 score Not Available [facility] ([facility]) [address] [facility], [place], [address], 06/06/2023 11:15:40 06/04/20 23 06/05/2023 NUSWA B VAGIN ITIS PLUS (VG+) bvab 2 Low - 0 score Not Available [facility] ([facility]) [address] [facility], [place], [address], 06/06/2023 11:15:40 06/04/20 23 06/05/2023 NUSWA B VAGIN ITIS PLUS (VG+) megasphaera 1 Low - 0 score Calcu late total score by davion g the 3 indiv idual bacte rial vagin osis (BV) marke r score s toget her. Total score is inter prete d as follo ws: Total score 0-1: Indic ates the absen ce of BV. Total score 2: Indet ermin ate for BV. Addit ional clini ulices data shoul d be evalu ated to estab kavita a diagn osis. Total score 3-6: Indic ates the prese nce of BV. This test was devel oped and its perfo rmanc e vince cteri stics deter mined by [facility]. It has not been clear ed or appro caro by the Food and Drug Admin istra tion. Not Available [facility] ([facility]) [address] [facility], [place], [address], 06/06/2023 11:15:40 06/04/20 23 06/05/2023 NUSWA B VAGIN ITIS PLUS (VG+) sonal albicans, ANDREE Negati ve negati ve Not Available [facility] ([facility]) [address] [place], [address], 06/06/2023 11:15:40 06/04/20 23 06/05/2023 NUA B VAGIN ITIS PLUS (VG+) sonal glabrata, ANDREE Negati ve negati ve Not Available [facility] ([facility]) [address] [place], [address], 06/06/2023 11:15:40 06/04/20 23 06/06/2023 NUSWA B VAGIN ITIS PLUS (VG+) trich vag by ANDREE Negati ve negati ve Not Available [facility] ([facility]) [address] [place], [address], 06/06/2023 11:15:40 06/04/20 23 06/06/2023 NUSWA B VAGIN ITIS PLUS (VG+) chlamydia trachomatis, ANDREE Negati ve negati ve Not Available [facility] ([facility]) [address] [place], [address], 06/06/2023 11:15:40 06/04/20 23 06/06/2023 NUSWA B VAGIN ITIS PLUS (VG+) neisseria gonorrhoeae, ANDREE Negati ve negati ve Not Available [facility] ([facility]) [address] [place], [address], 06/06/2023 11:15:40 06/04/20 23 06/05/2023 HBSAG SCREE N HBsAg screen Negati ve negati ve Not Available [facility] ([facility]) [address] [facility], [place], [address], 06/06/2023 11:15:41 06/04/2006/05/2023 RPR, RFX QN RPR/C ONFIR M TP RPR Non Reacti ve nonrea ctive Not Available [facility] ([facility]) [address] [facility], [place], [address], 06/06/2023 11:15:42 06/04/2006/05/2023 HIV AB/P2 4 AG WITH REFLE X HIV Ab/P24 Ag screen Non Reacti ve nonrea ctive HIV Negat brandy HIV-1 /HIV- 2 antib odies and HIV-1 p24 antig en were NOT detec lyndsay. There is no labor atory evide nce of HIV infec tion. Not Available [facility] ([facility]) [address] [facility], [place], [address], 06/06/2023 11:15:42 06/04/20 23 06/06/2023 IGP,C TNGTV ,RFX APTIM A HPV ASCU diagnosis: Commen t NEGAT BRANDY FOR INTRA EPITH ELIAL LESIO N OR STANISLAV VASQUEZ . Not Available [facility] ([facility]) [address] [facility], [place], [address], 06/06/2023 16:15:38 06/04/2006/06/2023 IGP,C TNGTV ,RFX APTIM A HPV ASCU specimen adequacy: Commen t Satis facto ry for evalu ation . Endoc ervic al and/o r squam ous metap lasti c cells (endo cervi ulices compo nent) are prese nt. Not Available [facility] ([facility]) [address] [facility], [place], [address], 06/06/2023 16:15:38 06/04/20 23 06/06/2023 IGP,C TNGTV ,RFX APTIM A HPV ASCU clinician provided ICD10: Nora zuleta Z72.5 1 N89.8 Z01.4 19 Not Available [facility] ([facility]) [address] [place], [address], 06/06/2023 16:15:38 06/04/20 23 06/06/2023 IGP,C TNGTV ,RFX APTIM A HPV ASCU performed by: Santa Reese Not Available [facility] ([facility]) [address] [place], [address], 06/06/2023 16:15:38 06/04/2006/06/2023 IGP,C TNGTV ,RFX APTIM A HPV ASCU . . Not Available [facility] ([facility] [address] [place], [address], 06/06/2023 16:15:38 06/04/20 23 06/06/2023 IGP,C TNGTV ,RFX APTIM A HPV ASCU note: Nora zuleta The Pap smear is a scree harvey test desig tina to aid in the detec tion of kirsten ligna nt and malig nant condi tions of the uteri ne cervi x. It is not a diagn ostic proce dure and shoul d not be used as the sole means of detec ting cervi ulices cance r. Both false -posi tive and false -nega tive repor ts do occur . Not Available [facility] ([facility]) [address] [place], [address], 06/06/2023 16:15:38 06/04/2006/06/2023 IGP,C TNGTV ,RFX APTIM A HPV ASCU test methodology: Nora zuleta This liqui d based ThinP rep(R ) pap test was scree tina with the use of an image guide eugenie systabel m. Not Available [facility] ([facility]) [address] [place], [address], 06/06/2023 16:15:38 06/04/20 23 06/06/2023 IGP,C TNGTV ,RFX APTIM A HPV ASCU . Commen t The HPV DNA refle x crite macho were not met with this speci men resul t there fore, no HPV testi ng was perfo rmed. Not Available [facility] ([facility]) [address] [facility], [place], [address], 06/06/2023 16:15:38 06/04/20 23 06/06/2023 IGP,C TNGTV ,RFX APTIM A HPV ASCU chlamydia, nuc. acid amp Negati ve negati ve Not Available [facility] ([facility]) [address] [place], [address], 06/06/2023 16:15:38 06/04/20 23 06/06/2023 IGP,C TNGTV ,RFX APTIM A HPV ASCU gonococcus, nuc. acid amp Negati ve negati ve Not Available [facility] ([facility]) [address] [place], [address], 06/06/2023 16:15:38 06/04/20 23 06/06/2023 IGP,C TNGTV ,RFX APTIM A HPV ASCU trich vag by ANDREE Negati ve negati ve Not Available [facility] ([facility]) [address] [place], [address], 06/06/2023 16:15:38 02/13/20 24 02/15/2024 NUSWA B VAGIN ITIS PLUS (VG+) atopobium vaginae LOW - 0 score Not Available [facility] ([facility]) [address] [place], [address], 02/16/2024 07:19:14 02/13/20 24 02/15/2024 NUSWA B VAGIN ITIS PLUS (VG+) bvab 2 LOW - 0 score Not Available [facility] ([facility]) [address] [place], [address], 02/16/2024 07:19:14 02/13/20 24 02/15/2024 NUA B VAGIN ITIS PLUS (VG+) megasphaera 1 LOW - 0 score Calcu late total score by davion barrera the 3 indiv idual bacte rial vagin osis (BV) marke r score s toget her. Total score is inter prete d as follo ws: Total score 0-1: Indic ates the absen ce of BV. Total score 2: Indet ermin ate for BV. Addit ional clini ulices data shoul d be evalu ated to estab kavita a diagn osis. Total score 3-6: Indic ates the prese nce of BV. Not Available [facility] ([facility]) [address] [facility], [place], [address], 02/16/2024 07:19:14 02/13/20 24 02/15/2024 NUA B VAGIN ITIS PLUS (VG+) sonal albicans, ANDREE NEGATI VE negati ve Not Available [facility] ([facility]) [address] [place], [address], 02/16/2024 07:19:14 02/13/20 24 02/15/2024 NUA B VAGIN ITIS PLUS (VG+) sonal glabrata, ANDREE NEGATI VE negati ve Not Available [facility] ([facility]) [address] [place], [address], 02/16/2024 07:19:14 02/13/20 24 02/15/2024 NUA B VAGIN ITIS PLUS (VG+) trich vag by ANDREE NEGATI VE negati ve Not Available [facility] ([facility]) [address] [place], [address], 02/16/2024 07:19:14 02/13/20 24 02/15/2024 NUSWA B VAGIN ITIS PLUS (VG+) chlamydia trachomatis, ANDREE NEGATI VE negati ve Not Available [facility] ([facility]) [address] [facility], [place], [address], 02/16/2024 07:19:14 02/13/20 24 02/15/2024 NUSWA B VAGIN ITIS PLUS (VG+) neisseria gonorrhoeae, ANDREE NEGATI VE negati ve Not Available [facility] ([facility]) [address] [facility], [place], [address], 02/16/2024 07:19:14 04/29/20 24 04/29/2024 LIPID PANEL cholesterol, total 168 mg/dL 100-19 9 Not Available [facility] [address] [place], [address], 04/30/2024 06:19:59 04/29/2004/29/2024 LIPID PANEL triglyceride s 88 mg/dL 0-149 Not Available [facility] [address] [place], [address], 04/30/2024 06:19:59 04/29/2004/29/2024 LIPID PANEL HDL cholesterol 37 mg/dL 40-999 below low normal Not Available [facility] [address] [place], [address], 04/30/2024 06:19:59 04/29/20 24 04/29/2024 LIPID PANEL VLDL cholesterol ulices 18 mg/dL 5-40 Not Available [facility] [address] [place], [address], 04/30/2024 06:19:59 04/29/20 24 04/29/2024 LIPID PANEL LDL chol calc ([facility]) 125 mg/dL 0-99 above high normal Not Available [facility] [address] [place], [address], 04/30/2024 06:19:59 04/29/20 24 04/29/2024 COMP. METAB OLIC PANEL (14) glucose 77 mg/dL 70-99 Not Available [facility] [address] [place], [address], 04/30/2024 06:20:00 04/29/20 24 04/29/2024 COMP. METAB OLIC PANEL (14) BUN 10 mg/dL 6-20 Not Available [facility] [address] [place], [address], 04/30/2024 06:20:00 04/29/20 24 04/29/2024 COMP. METAB OLIC PANEL (14) creatinine 0.66 mg/dL 0.76-1 .27 below low normal Not Available [facility] [address] [place] [address], [address], 04/30/2024 06:20:00 04/29/20 24 04/29/2024 COMP. METAB OLIC PANEL (14) eGFR 127 >=60 Units for eGFR value s are mL/mi n/1.7 3 The eGFR Calcu latio n has not been valid ated for patie nts under the age of 18. If test resul ts are displ ayed for a patie nt under the age of 18, disre erica that value . Not Available [facility] [address] [place] [address], [address], 04/30/2024 06:20:00 04/29/20 24 04/29/2024 COMP. METAB OLIC PANEL (14) BUN/creatini ne ratio 15 9-23 Not Available [facility] [address] [place], [address], 04/30/2024 06:20:00 04/29/20 24 04/29/2024 COMP. METAB OLIC PANEL (14) sodium 138 mmol/ L 134-14 4 Not Available [facility] [address] [place] [address], [address], 04/30/2024 06:20:00 04/29/20 24 04/29/2024 COMP. METAB OLIC PANEL (14) potassium 4.6 mmol/ L 3.5-5. 2 Not Available [facility] [address] [place] [address], [address], 04/30/2024 06:20:00 04/29/20 24 04/29/2024 COMP. METAB OLIC PANEL (14) chloride 102 mmol/ L 96-106 Not Available [facility] [address] [place] [address], [address], 04/30/2024 06:20:00 04/29/20 24 04/29/2024 COMP. METAB OLIC PANEL (14) carbon dioxide, total 24 mmol/ L 20-29 Not Available [facility] [address] [place] [address], [address], 04/30/2024 06:20:00 04/29/20 24 04/29/2024 COMP. METAB OLIC PANEL (14) calcium 9.7 mg/dL 8.7-10 .2 Not Available [facility] [address] [place], [address], 04/30/2024 06:20:00 04/29/20 24 04/29/2024 COMP. METAB OLIC PANEL (14) protein, total 7.2 g/dL 6.0-8. 5 Not Available [facility] [address] [place] [address], [address], 04/30/2024 06:20:00 04/29/20 24 04/29/2024 COMP. METAB OLIC PANEL (14) albumin 4.2 g/dL 4.0-5. 0 Not Available [facility] [address] [place] [address], [address], 04/30/2024 06:20:00 04/29/20 24 04/29/2024 COMP. METAB OLIC PANEL (14) globulin, total 3.0 g/dL 1.5-4. 5 Not Available [facility] [address] [place], [address], 04/30/2024 06:20:00 04/29/20 24 04/29/2024 COMP. METAB OLIC PANEL (14) A/G ratio 1.0 1.2-2. 2 below low normal Not Available [facility] [address] [place], [address], 04/30/2024 06:20:00 04/29/20 24 04/29/2024 COMP. METAB OLIC PANEL (14) bilirubin, total 0.7 mg/dL 0.0-1. 2 Not Available [facility] [address] [place], [address], 04/30/2024 06:20:00 04/29/20 24 04/29/2024 COMP. METAB OLIC PANEL (14) alkaline phosphatase 94 IU/L 44-121 Not Available [facility] [address] [place], [address], 04/30/2024 06:20:00 04/29/20 24 04/29/2024 COMP. METAB OLIC PANEL (14) AST (SGOT) 16 IU/L 0-40 Not Available [facility] [address] [place] [address], [address], 04/30/2024 06:20:00 04/29/20 24 04/29/2024 COMP. METAB OLIC PANEL (14) ALT (SGPT) 14 IU/L 0-32 Not Available [facility] [address] [place], [address], 04/30/2024 06:20:00 04/29/20 24 04/30/2024 HEMOG LOBIN A1C hemoglobin A1C 5.3 % 4.8-5. 6 Predi abete s: 5.7 - 6.4 Diabe abel: >6.4 Glyce azam contr ol for adult s with diabe abel: <7.0 Not Available [facility] [address] [facility], [place], [address], 04/30/2024 11:14:56 04/29/20 24 04/30/2024 VITAM IN D, 25-HY DROXY vitamin D, 25-hydroxy 5.1 NG/mL 30.0-1 00.0 below low normal Vitam in D defic iency has been defin ed by the Insti tute of Medic ine and an Endoc rine Socie ty pract ice guide line as a level of serum 25-OH vitam in D less than 20 ng/mL (1,2) . The Endoc rine Socie ty went on to furth er defin e vitam in D insuf ficie ncy as a level betwe en 21 and 29 ng/mL (2). 1. IOM (Inst itute of Medic ine). 2010. Dieta ry refer ence intak es for calci um and D. Megan song [place]: [facility] Press . 2. Anastasia cm MF, Harsha gonzalez [place], Yaneth off-F errar i SEALS, et al. Evalu ation , treat ment, and preve ntion of vitam in D defic iency : an Endoc rine Socie ty clini ulices pract ice guide line. JCEM. 2010; 96(7) :1911 -30. Not Available [facility] ([facility]) [address] [facility], [place], [address], 04/30/2024 11:14:57 04/29/20 24 04/30/2024 NUSWA B VAGIN ITIS PLUS (VG+) atopobium vaginae LOW - 0 score Not Available [facility] ([facility]) [address] [facility], [place], [address], 05/01/2024 06:18:10 04/29/20 24 04/30/2024 NUSWA B VAGIN ITIS PLUS (VG+) bvab 2 LOW - 0 score Not Available [facility] ([facility]) [address] [facility], [place], [address], 05/01/2024 06:18:10 04/29/20 24 04/30/2024 NUSWA B VAGIN ITIS PLUS (VG+) megasphaera 1 LOW - 0 score Calcu late total score by davion barrera the 3 indiv idual bacte rial vagin osis (BV) marke r score s toget her. Total score is inter prete d as follo ws: Total score 0-1: Indic ates the absen ce of BV. Total score 2: Indet ermin ate for BV. Addit ional clini ulices data shoul d be evalu ated to estab kavita a diagn osis. Total score 3-6: Indic ates the prese nce of BV. Not Available [facility] ([facility]) [address] [place], [address], 05/01/2024 06:18:10 04/29/20 24 04/30/2024 NUA B VAGIN ITIS PLUS (VG+) sonal albicans, ANDREE NEGATI VE negati ve Not Available [facility] ([facility]) [address] [place], [address], 05/01/2024 06:18:10 04/29/20 24 04/30/2024 NUA B VAGIN ITIS PLUS (VG+) sonal glabrata, ANDREE NEGATI VE negati ve Not Available [facility] ([facility]) [address] [place], [address], 05/01/2024 06:18:10 04/29/20 24 05/01/2024 NUA B VAGIN ITIS PLUS (VG+) trich vag by ANDREE NEGATI VE negati ve Not Available [facility] ([facility]) [address] [place], [address], 05/01/2024 06:18:10 04/29/20 24 05/01/2024 NUA B VAGIN ITIS PLUS (VG+) chlamydia trachomatis, ANDREE NEGATI VE negati ve Not Available [facility] ([facility]) [address] [place], [address], 05/01/2024 06:18:10 04/29/2005/01/2024 NUSWA B VAGIN ITIS PLUS (VG+) neisseria gonorrhoeae, ANDREE NEGATI VE negati ve Not Available [facility] ([facility]) [address] [facility], [place], [address], 05/01/2024 06:18:10 Result Notes None recorded. Problems Name Problem SNOMED Code Status Onset Date Resolution Date Notes Provider Name and Address Organization Details Recorded Time Depressive disorder 90712252 Active 2017 Quita Rosairo MD Attn: Clemencia barrera,[address] [place], [address], [facility] 4 13:56:49 Pain of right breast 7926011203 Active 2023 Qiuta Rosario MD Attn: Clemencia barrera,[address] [place], [address], [facility] 5 14:09:38 Abdominal pain 70035156 Active 2023 Quita Rosario MD Attn: Clemencia barrera,[address] [place], [address], [place] [facility] 4 23:05:49 Vaginitis 72715607 Completed 202309/26/2024 Quita Rosario MD Attn: Clemencia barrera,[address] [place], [address], [place] - [facility] 5 14:10:02 Hyperlipid emia 88953740 Active 2023 Quita Rosario MD Attn: Clemencia barrera,[address] [place], [address], [facility] 5 14:09:40 Generalize d anxiety disorder 82772598 Active 2023 Quita Rosario MD Attn: Clemencia barrera,[address] [place], [address], [place] [facility] 5 14:09:42 Smoker 97933951 Active 2023 Quita Rosario MD Attn: Clemencia holly,[address] [facility], [place], [address], [place] [facility] 5 14:10:14 Streptococ ulices sore throat 37714825 Completed 04/03/2024 Quita Rosario MD Attn: Clemencia holly,[address] [facility], [place], [address], [place] [facility] 4 08:05:11 Obesity 268070945 Active Quita Rosario MD Attn: Clemencia barrera,[address] [place], [address], [place] [facility] 4 13:56:46 Primary dysmenorrh ea 10989662 Active Quita Rosario MD Attn: Clemencia barrera,[address] [place], [address], [place] [facility] 4 13:56:44 Chronic tonsilliti s 47694231 Completed 09/26/2024 Quita Rosario MD Attn: Clemencia barrera,[address] [place], [address], [place] [facility] 5 14:09:46 Morbid obesity 465668585 Active Quita Rosario MD Attn: Clemencia barrera,[address] [place], [address], [place] [facility] 4 13:56:47 Vitamin D deficiency 40432457 Active Quita Rosario MD Attn: Clemencia barrera,[address] [place], [address], [place] [facility] 4 13:56:43 Problem Notes None recorded. Procedures Surgical History Date Name Laterality Status Provider Name and Address Organization Details Recorded Time 06/04/2023 Date of Last Pap Smear completed Ita Gonzalez [facility] 06/04/2023 14:16:06 Imaging Results None recorded. Procedure Notes None recorded. Medical Equipment None Reported. Allergies No known drug allergies Medications Name Sig Start Date Stop Date Status Note LastModified by Organization Details LastModified Time amoxicillin 500 mg capsule 06/04 completed Not Available Not Available Not Available naproxen 375 mg tablet Take 1 tablet twice a day by oral route as needed. 06/04 completed Not Available Not Available Not Available nicotine 14 mg/24 hr daily transdermal patch Apply 1 patch every day by transderm al route for 42 days. active Not Available Not Available No t Available ibuprofen 800 mg tablet 06/04 completed Not Available Not Available Not Available hydrocodone 5 mg-acetamin ophen 325 mg tablet TAKE 1 TABLET BY MOUTH EVERY 6 HOURS NEEDED FOR PAIN 06/04 completed Not Available Not Available Not Available amoxicillin 500 mg tablet Take 1 tablet twice a day by oral route as directed for 10 days. 01/16 completed Not Available Not Available Not Available oseltamivir 75 mg capsule TAKE 1 CAPSULE BY MOUTH EVERY 12 HOURS FOR 5 DAYS 01/16 completed Not Available Not Available Not Available amoxicillin 400 mg/5 mL oral suspension Take 12.5 mL twice a day by oral route as directed for 10 days. 01/16 completed Not Available Not Available Not Available ergocalcife rol (vitamin D2) 1,250 mcg (50,000 unit) capsule TAKE 1 CAPSULE BY MOUTH EVERY WEEK active Not Available Not Available No t Available ondansetron 4 mg disintegrat ing tablet DISSOLVE 1 TABLET ON THE TONGUE EVERY 6 HOURS NEEDED FOR NAUSEA OR VOMITING 01/16 completed Not Available Not Available Not Available clotrimazol e 1 % topical cream APPLY TOPICALLY TO THE AFFECTED AREA TWICE DAILY FOR 2 WEEKS 06/04 completed Not Available Not Available Not Available amoxicillin 875 mg-potassiu m clavulanate 125 mg tablet TAKE 1 TABLET BY MOUTH TWICE DAILY FOR 10 DAYS 06/04 completed Not Available Not Available Not Available nicotine 7 mg/24 hr daily transdermal patch Apply 1 patch every day by transderm al route for 14 days. 2023 active Not Available Not Available Not Avai lable chlorhexidi ne gluconate 0.12 % mouthwash RINSE AND GARGLE 15 ML BY MOUTH OR THROAT TWICE DAILY 06/04 completed Not Available Not Available Not Available Zafemy 150 mcg-35 mcg/24 hr transdermal patch APPLY 1 PATCH TOPICALLY TO THE SKIN EVERY WEEK 02/12 completed Not Available Not Available Not Available Vitals Date Recorded Body height Body mass index (BMI) Body weight Heart rate Respiratory rate Body temperature Systolic blood pressure Diastolic blood pressure Provider Name and Address Organization Details Last Updated DateTime 8 167.01 cm 46.5 kg/m2 602854. 42 g 80 /min 16 /min 98.3 [degF] 124 mm[Hg] 70 mm[Hg] Maia Lin MA [facility] 8 11:54:43 Date Recorded Body height Body mass index (BMI) Body weight Systolic blood pressure Diastolic blood pressure Provider Name and Address Organization Details Last Updated DateTime 02/13/2024 167.64 cm 43.6 kg/m2 186101.9 4 g 122 mm[Hg] 84 mm[Hg] JULIO CÉSAR Argueta [facility] 4 10:54:03 Date Recorded Body height Body mass index (BMI) Body weight Body temperature Heart rate Respiratory rate Systolic blood pressure Diastolic blood pressure Provider Name and Address Organization Details Last Updated DateTime 4 167.64 cm 42.8 kg/m2 605431. 03 g 98.3 [degF] 80 /min 18 /min 138 mm[Hg] 79 mm[Hg] Rosaura Mcduffie MA [facility] 4 15:08:37 Date Recorded Body height Body mass index (BMI) Body weight Heart rate Respiratory rate Systolic blood pressure Diastolic blood pressure Provider Name and Address Organization Details Last Updated DateTime 3 167.64 cm 44.4 kg/m2 821112. 3 g 87 /min 16 /min 119 mm[Hg] 83 mm[Hg] Ita Gonzalez [facility] 3 14:19:29 Date Recorded Body height Heart rate Body weight Respiratory rate Body temperature Body mass index (BMI) Systolic blood pressure Diastolic blood pressure Provider Name and Address Organization Details Last Updated DateTime 6 165.735 cm 76 /min 504787. 78575 g 16 /min 98.1 [degF] 43.9 kg/m2 112 mm[Hg] 66 mm[Hg] Maia Lin MA [facility] 6 14:53:19 Social History Question Answer Notes LastModified by Organizat ion Details LastModified Time Tobacco Smoking Status Former Smoker Kenneth,GALI [place], [place] - [facility] 04/29/2024 15:09:56 What Is Your Level Of Caffeine Consumption? Occasional Information not available 02/13/2024 In The 14 Days Before Symptom Onset, Have You Had Close Contact With A Laboratory-confir med COVID-19 While That Case Was Ill? No [email or web address] Information not available 06/04/2023 In The 14 Days Before Symptom Onset, Have You Had Close Contact With A Person Who Is Under Investigation For COVID-19 While That Person Was Ill? No [email or web address] Information not available 06/04/2023 Have You Been To An Area Known To Be High Risk For COVID-19? No [email or web address] Information not available 06/04/2023 What Was The Date Of Your Most Recent Tobacco Screening? 04/29/2024 Information not available 04/29/2024 What Is Your Relationship Status? Single [email or web address] Information not available 06/04/2023 Are You Sexually Active? Yes Information not available 06/04/2023 Do You Have Smoke And Carbon Monoxide Detectors In Your Home? Yes [email or web address] Information not available 06/04/2023 Are You Passively Exposed To Smoke? Yes [email or web address] Information no t available 06/04/2023 Has Tobacco Cessation Counseling Been Provided? Yes [email or web address] Information not available 06/04/2023 On What Date Was Tobacco Cessation Counseling Provided? 04/29/2024 Information not available 04/29/2024 Have You Used IV Drugs? No Information not available 02/13/2024 Sex: Female Functional Status Question Answer Note LastModified by Organizat ion Details LastModified Time Do you use any illicit or recreational drugs? Yes THC [email or web address] Information not available 06/04/2023 Do you or have you ever used any other forms of tobacco or nicotine? Yes [email or web address] Information not available 06/04/2023 What is your level of alcohol consumption? Occasional Information not available 06/04/2023 Do you or have you ever used e-cigarettes or vape? Current user of electronic cigarettes [email or web address] Information not available 06/04/2023 Mental Status None recorded. Family History Relationship Description Onset Age of this Age Resolved Age Notes LastModified by Organization Details LastModified Time Father No current problems or disability Not available 06/04 14:16:20 Mother No current problems or disability [email or web address] Not available 06/04 14:16:20 Medical History Condition Response Blood Diseases N Ear or Hearing Problems N Thyroid Problems N Depression N Developmental or Behavioral Disorders N Skin Problems N Eating Disorder Y Premature N Anemia N Constipation N Headaches/Migraines Y Anxiety Disorder Y Diabetes N Muscle, Joint, or Bone Problems N Bedwetting N Vision or Eye Problems N Heart Problems/Murmur N Seizures/Epilepsy N Head Injury/Concussion N Acid Reflux (GERD) Y Cancer N Asthma N Allergies N ADHD N Bladder or Kidney Problems N Headaches N Chicken Pox N Autism Spectrum Disorder (ASD) N Gynecological History Statement/Question Response Flow Moderate Date of LMP 04/03/2024 STIs/STDs N Duration of Flow (days) 5 Age at Menarche 14 Current Control Method None Frequency of Cycle (Q days) 28 Sexually Active? Y Menses Monthly Y Date of Last Pap Smear 06/04/2023 Sexual Problems? N LMP Approximate Obstetrics History GPAL:G 0 P 0 0 0 0 Immunizations Vaccine Type Date Status Note Provider Nam e and Address Organization Details Recorded Time HPV9 6 completed Not Available [facility] 09/27/2019 02:42:00 meningococcal ACWY, unspecified formulation 3 completed Maia Lin [place], [place] - [facility] 04/05/2015 13:58:14 HPV, quadrivalent 3 completed Ma[place] [facility] 04/05/2015 13:58:14 Hib, unspecified formulation 4 completed [place] [facility] 04/05/2015 13:58:14 DTaP, unspecified formulation 6 completed [place] [facility] 04/05/2015 13:58:14 DTaP-Hep B-IPV 4 completed [place] [facility] 04/05/2015 13:58:14 varicella 7 [place] [facility] 04/05/2015 13:58:14 polio, unspecified formulation 7 completed [place] [facility] 04/05/2015 13:58:14 Hep B, adolescent or pediatric 7 completed [place] [facility] 04/05/2015 13:58:14 Hib, unspecified formulation 6 completed [place] [facility] 04/05/2015 13:58:14 MMR 6 [place] [facility] 04/05/2015 13:58:14 polio, unspecified formulation 6 completed [place] [facility] 04/05/2015 13:58:14 Tdap 3 [place] [facility] 04/05/2015 13:58:14 varicella 4 [place] [facility] 04/05/2015 13:58:14 MMR 4 completed [place] [facility] 04/05/2015 13:58:14 Hep B, adolescent or pediatric 2 [place] [facility] 04/05/2015 13:58:14 MMR 7 completed [place] [facility] 04/05/2015 13:58:14 Hep B, adolescent or pediatric 6 [place] [facility] 04/05/2015 13:58:14 pneumococcal conjugate PCV 7 6 [place] [facility] 04/05/2015 14:07:26 DTaP, unspecified formulation 7 [place] [facility] 04/05/2015 14:07:26 Hep A, ped/adol, 2 dose 7 completed Maia Lin [place] [facility] 04/05/2015 14:07:26 DTaP, unspecified formulation 7 completed GALI [place], [place] [facility] 04/05/2015 14:07:26 Hep A, ped/adol, 2 dose 6 completed Maia Lin [place] cynthia, [place] [facility] 04/05/2015 14:07:26 Past Encounters Encounter ID Performer Location Encounter Start Date Encounter Closed Date Diagnosis/Indication Diagnosis SNOMED-CT Code Diagnosis ICD10 Code Diagnosis Note [id number] MD Joi Sharma (Peds) [address] [place] [address] 04/06/2015 10:49:23 04/06/2015 12:26:56 Streptococcal sore throat 59083571 Obesity 764599072 Diet discussed, recheck and lab in 3 mo [id number] MD Joi Sharma (Peds) [address] [place] [address] 06/16/2016 14:16:56 06/16/2016 16:28:17 Well child 222413538 Z00.129 Chronic tonsillitis 9097 9004 J35.01 Morbid obesity 761594554 E66.[address] at [facility]. Must stop starches, no juices, rule 66142 [id number] MD Joi Sharma (Peds) [address] [place] [address] 11/19/2017 11:17:07 11/19/2017 16:39:13 Morbid obesity 184542024 E66.[address] at [facility]. Must stop starches, no juices, rule 67295 Depressive disorder 3548 9007 F32.9 due to her wt, refer to Ms Chapman [phone] [id number] Rose Arriaga, [employer]- Joi 14 OB [address] [facility] [place] [address] 06/04/2023 14:01:57 06/05/2023 09:02:26 Gynecologic examination 29509499 Z01.419 1. Counseled regarding prevention of STD's , condom use and prevention . 2. Counseled regarding contracept brandy options, risk factors and side effects. 3. Advised avoidance of tobacco, alcohol, and drugs . 4. Counseled regarding folic acid supplement ation, calcium needs and prevention of osteoporos is . 5. BSE reviewed and recommende d. 6. Follow up in one year or sooner if needed. Smoker 58253539 F17.200 smoking cessation informatio n give. pt understand s the risk factors associated with smoking including heart disease, blood clots, stroke and increase risks for cancers. Morbid obesity 784632362 E66.01 Discussed diet and weight loss. Discussed making healthier food choices and increasing exercise. Discussed going to a pulp plant supervisor. Contracept ion care management 744030962 Z30.9 1. Reviewed all forms of control with patient including risk factors and side effects. 2. Counseled on STD transmissi on and prevention , condom use and prevention . 3. Pt would like to start with control patch. Educated on correct use and side effects. Will send rx to pharmacy. 4. Follow up for med check in 3 months or sooner if needed. High risk sexual behavior 829260737 Z72.51 1. STD testing done per pt request 2. Educated pt on STD prevention , Condom use 3. Pt verbalized understand ing 4. Will follow up pending lab results, as needed or at next annual Vaginal discharge 263871 006 N89.8 Nuswab done and sent to lab. Counseled on STD prevention and condom use. Counseled on yeast and BV prevention . Will follow up pending lab results. Positive s creening for depression on PHQ-9 (Patient Health Questionnaire 9) 7300184962 66999 Z13.31 Denies thoughts of self harm or harming others. Pt instructed to call 911 if depression worsens or go to ED. Pain of breast 23623046 N64.4 Importance of sbe exam discussed with pt. Referral to breast specialist order given, pt verbalized understand ing. [id number] MD Joi Agudelo 14 OB [address] [facility] [address] [place], [place] [address] [address] 02/13/2024 10:25:54 02/15/2024 09:47:52 Mass of right breast 2867862040 8339187 N63.10 Imaging order and referral to breast surgeon. Pt educated on importance of follow up Vaginal discharge 172234 006 N89.8 Educated patient on vulvar hygiene and use condoms during sex. swab obtained and sent to lab. Positive s creening for depression on PHQ-9 (Patient Health Questionnaire 9) 7541072889 43622 Z13.31 Pt educated on management options and resources. Pt opts for counseling referral and will establish with PCP. Pt educated on importance of follow up. Pt educated on warning signs and given ER precaution s. Pt notified ot call office if issues occur. Body mass index 40+ - severely obese 064469754 Z68.41 Pt educated on risks and importance of lifestyle modificati ons. Pt reports will continue to follow up with PCP. Routine gy necologic examination done 6089428406 9101 Z01.419 -Educated on the importance of SBE and awareness. -Discussed the importance of cervical cancer screenings . pap negative 06/04/23-Ed ucated osteoporos is prevention including calcium rich foods, weight bearing exercise.- Discussed the importance of exercise.- Nutrition discussed and the importance of a diet rich in fruits, vegetable, whole grains, and lean proteins.- Counseled regarding prevention of STD's and screening options, condom use and prevention .-Advised avoidance of tobacco, alcohol, and drugs.-Dis cussed sun safety and the importance of sunscreen. [id number] MD Joi Espino 14 IM [address] [facility] [address] [place] [address] 04/29/2024 14:58:32 05/15/2024 09:21:11 Morbid obesity 654975008 E66.01 BMI 42.8. Has been working to improve diet, lost 10 lbs in past year. - check A1c- patient counselled on continued lifestyle modificati on Vitamin D deficiency 347 14942 E55.9 Patient high risk for vitamin D deficiency given job and free time spent inside. May be contributi ng to anxiety and depression symptoms. - check vitamin D Hyperlipidemia 99185905 E78.5 BMI 42.8. Will check lipid panel. Pain of right breast 046 5298603 N64.4 Right breast pain x1 year without palpable mass, skin change, or nipple discharge. Reportedly swelled 3 months ago then improved. Ultrasound previously ordered but not completed. - mammogram and ultrasound (previousl y ordered) for further characteri zation Abdominal pain 47726856 R10.9 Nonspecifi c pain without associated nausea, vomiting, constipati on, diarrhea. Abdominal exam unremarkab le. Differenti als include gas, IBS, MSK pain. - CMP to rule out hepatobili iván, renal, and electrolyt e abnormalit ies- patient advised to keep a journal of symptoms and possible triggers Vaginitis 07988142 N76.0 DDX BV, yeast, contact irritation . - Test Nuswab vaginitis- Pt counselled on avoiding soaps, douching, and scented laundry detergent; wearing cotton underwear, and encouragin g air flow Generalize d anxiety disorder 47086477 F41.1 Longstandi ng anxiety symptoms. Denies SI and HI.Not addressed fully due to time constraint s and patient preference . - follow-up as needed for further management Smoker 56826403 F17.200 Vapes nicotine, has cut back since starting new job. Lj g in nicotine patches.Qu it date 05/05/24. - nicotine 14 mg patch daily x6 weeks followed by 7 mg daily x2 weeks- patient counselled on not smoking while using patches Health Concerns Section Related Observation LastModified by Organization Detai ls LastModified Time None Recorded Concern Status LastModified by Organization Details LastModified Time None Recorded Advance Directives Directive None Recorded Payers Insurance Date Sequence Insurance Name Policy Number Policy Davis Covered Member ID Davis Member ID Guarantor Name 10/01/2024 1 [facility] - DOS ON OR AFTER 21 (MEDICAID REPLACEMENT - HMO) Tyrone Bond [id number] Onelia Bond 09/19/2024 1 [facility] (MEDICAID HMO) [id number] Tyrone Bond [id number] Onelia Bond 09/19/2024 1 [facility] (MEDICARE REPLACEMENT/AD VANTAGE - HMO) Tyrone Bond [id number] Onelia Bnod 09/19/2024 1 [facility] (MEDICARE REPLACEMENT/AD VANTAGE - HMO) Tyrone Bond [id number] Onelia Bond 09/19/2024 1 [place] Tyrone Bond [id number] Onelia Bond 09/19/2024 1 [facility] - DOS ON OR AFTER 21 (MEDICAID REPLACEMENT - HMO) Tyrone Bond [id number] Onelia Hawkins Ronda Notes Date Note Type Note Provider Name and Address Organization Details Recorded Time 6 text/html Always has ST/stuffy/ coughed in sleep. Last 14 mo, Wt up 17 lb, worse BMI Harpreet Mortensen MD Attn: [address]ing[address] [place], [address], [facility] - [facility] 06/16/2016 15:47:18 8 text/html wt check, GREGG 17 mo ago, Wt up 20 lb, Ht up just 1/2 inch, but BMI is now 46.5 from 43.9. Feels depressed due to obesity. Had a concussion 1+ wk ago seen in ER at [place], [place] due to slip/Fall backward, no LOC. Not on good diet at all !!!! PHQ 9 score is 16 Harpreet Mortensen MD Attn: [address] [place], [address], [facility] - [facility] 11/19/2017 17:38:16 3 text/html Annual GYNReported bypatient.Menstrual cycle:Normal menses Urinary symptoms:No hematuria; No incontinence Vulva:No genital lesion Vagina:Normal vaginal discharge Breast:No breast pain; No breast lump; No nipple discharge Current Contraception:Wants to discuss contraceptive options; Requests testing for sexually transmitted infections Sexual complaints:No sexual complaints; No pain during intercourse; Normal libido Menopausal Symptoms:No menopausal symptoms; Normal vaginal lubrication Psychological symptoms:No depression; No anxiety; No PMDD Preventive measures:Encourage self breast examination; Encourage regular exercise; Encourage no tobacco use; Encourage regular mammograms starting age [age] yo fe here for annual exam- would like std testing, having issues with vaginal discharge on and off with odor- would like to try control patch, states regular monthly cycles- states right breast larger than other, intermittent sharp pains for last 9 months, denies nipple discharge LYLE Crawford Attn: Accounting[address] [place], [address], [facility] - [facility] 06/04/2023 14:57:58 4 text/html Annual GYNReported bypatient.History:no gynecologic complaints Menstrual cycle:Normal menses Urinary symptoms:No hematuria; No incontinence Vulva:No genital lesion Vagina:White Breast:No nipple discharge;Breast pain;Breast lump Current Contraception:Wants to discuss contraceptive options Sexual complaints:No sexual complaints; No pain during intercourse; Normal libido Menopausal Symptoms:No menopausal symptoms; Normal vaginal lubrication Psychological symptoms:No depression; No anxiety; No PMDD Preventive measures:Encourage self breast examination; Encourage regular exercise; Encourage no tobacco use; Encourage regular mammograms starting age 40; Followed with Q3 year pap smear and high risk HPV typingBreast MassReported bypatient.Location:lowe r outer quadrant Onset/Timing:>4 months Severity:mild Duration:intermittent Associated Symptoms:no fever; no skin redness; no nipple discharge; no breast swelling; no arm pain; no arm swelling; no chest pain Pt is here for annual. pt reports lump in right breast in lower outer quadrant. pt also feels her right breast in becoming much larger than in her left breast. Pt report's this started in the last year. Pt also reports vaginal discharge but denies any other vaginal issues. Pt wanting to discuss getting nexplanon for contraception. PHQ score 7. Pt reports feeling stressed related to work and interested in counseling. pt denies any SI or HI. OKSANA Andrade Attn: Accounting,[address] [place], [address], [place] - [facility] 02/13/2024 13:26:46 4 text/html Tyrone is a 23 y/o with a history of depression and obesity presenting for foot pain and to establish care. Right breast painMainly pain in right breast, little on left but not as badStarted last year, swelled up in January and went back downTalked to Roxie See 02/13/24, sent for imaging but never made appointmentStaying the same since thenNo skin changes, no nipple dischargeAlso with mole on right nipplePain feels like pulling on skin, associated back pain from size of breastsPeriods regular, unsure if symptoms related Stomach painStarted around 4 months ago, no lifestyle changes, no traumaLower abdomen, both sides but left more than rightSharp, pulling, worse with movementFeels better with pressureNo constipation or diarrhea or dysuriaHits randomly throughout the day HeadacheRight side of head, worse with smokingNow better since not smoking, once every two weeksSeparate bad headaches around once a week, on both sides of head, better with TylenolDizziness with moving too quickly or hitting vapeAttributes to possible dehydrationDrinks little caffeineDenies LOC, changes in vision, numbness, and tingling Foot painHas gone away, taking better care of feet since working hard at [employer] VaginitisItching and dischargeTaking monistat x4 days, seems to be improvingRequests repeat STI screening today AllergiesNot addressed ObesityMaking dietary changes AnxietyLays in bed in free time, doesn't want to be around peopleFeels anxious all the timeDenies SI and HIDoes not wish to discuss further at this point SocialSmokes marijuanaVapes nicotene, wants to cut backWorks at [employer], past 2 monthsStarting at [facility] for psych in the fallLives with mom and sister, feels safe PreventativeCervical cancer screening q3 years rflx to HPV - 06/04/23, NSILHIV, Syphilis - neg on 06/04/23GAD 7, PHQ 2 - PHQ 7 on 02/13/24Chlamydia and gonorrhea - neg on 06/04/23, will perform todayIntimate partner violence - no concerns Nolberto Vizcarra MD Attn: Accounting,[address] [facility], [place], [address], [facility] - [facility] 05/13/2024 11:12:40 OBGyn Episode No OBEpisode recorded.
== END 2025-02-25 11:20 | disposition home or self-care (01) ==
PROVIDERS: Emergency Provider Nurse Practitioner
DX: J06.9 Acute upper respiratory infection, unspecified (principal); Z20.822 Contact with and (suspected) exposure to COVID-19
CPT/HCPCS: 87081; 87426; 87880; 99213; G0463